=== PATIENT | male | born 1970 | race Caucasian/White ===

== ENCOUNTER → 2018-01-29 12:52 | Outpatient (CLI) | payer OTHER, SELFPAY ==
--- NOTE | 2018-01-29 12:54 | RAD_ITS ---
STUDY: X-RAY - LUMBAR SPINE REASON FOR EXAM: Male, 47 years old. Pain TECHNIQUE: 4 view(s) of the lumbar spine were obtained. COMPARISON: None FINDINGS: Mild S-shaped scoliotic curvature of the lumbar spine. Lower ribs, upper medial pelvis and sacrum unremarkable. Normal lordosis. Slight retrolisthesis of L3-L4. Mild to moderate narrowing of the disc at L3-L4. No other disc degenerative features. Otherwise normal vertebral body height and alignment and normal mineralization. In flexion and extension there is no significant change in the degree of spondylolisthesis at L3-L4. There is rocker in of the disc space, widening anteriorly in extension, narrowing anteriorly in flexion. The remaining levels exhibit no abnormal motion. RAD/L/S Spine Min 4 Views IMPRESSION: There is motion across the degenerative disc at L3-L4 with flexion and extension, associated with mild retrolisthesis. Electronically Signed: Tom Gutierres, at 13:31 EDT Tel , Service support ,
== END ==
PROVIDERS: Family Provider Family Medicine; PCP Family Medicine; Visit Provider Orthopaedic Surgery
DX: M43.16 Spondylolisthesis, lumbar region (principal); M48.061 Spinal stenosis, lumbar region without neurogenic claudication
CPT/HCPCS: 72110

== ENCOUNTER → 2020-01-02 11:28 | Outpatient (CLI) | payer OTHER, SELFPAY ==
[2017-02-21 14:01] VITALS: BMI 23.9
--- NOTE | 2020-01-02 11:30 | RAD_ITS ---
STUDY: X-RAY - RIGHT SHOULDER REASON FOR EXAM: Male, 49 years old. PAIN IN RIGHT SHOULDER FOR SEVERAL YRS. GETTING WORSE WITH LIMITED RANGE OF MOTION. NO KNOWN INJURY. TECHNIQUE: 5 view(s) of the shoulder. COMPARISON: None. FINDINGS: There is mild degenerative arthrosis of the glenohumeral articulation. There is degenerative arthrosis of the acromioclavicular joint without inferior osseous spur formation. Normal acromion. Normal humeral head and visualized proximal humerus. The soft tissue structures are unremarkable. Normal visualized pulmonary apex. RAD/Shoulder min 2 Views IMPRESSION: Degenerative arthrosis Electronically Signed: Ricardo Pham MD at 11:52 EDT , Service support ,
== END ==
PROVIDERS: PCP Family Medicine; Referring Provider Orthopaedic Surgery; Visit Provider Orthopaedic Surgery
DX: M19.011 Primary osteoarthritis, right shoulder (principal)
CPT/HCPCS: 73030

== ENCOUNTER 2020-05-10 19:57 | Emergency (ER) | payer OTHER, SELFPAY ==
[2020-01-02 11:49] VITALS: BMI 23.9
[2020-05-10 19:58] VITALS: BP 144/86; PULSE 87; RESP 16; TEMP 36.4; O2SAT 99; BMI 24.8
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
[2020-05-10] MEDS: Erythromycin Base 1 OPTH.TUBE 1 APPLIC LEFT EYE (21:08)
== END 2020-05-10 21:09 | disposition home or self-care (01) ==
LOC: ED 20:40
PROVIDERS: Emergency Provider Emergency Medicine
DX: T15.02XA Foreign body in cornea, left eye, initial encounter (principal); X58.XXXA Exposure to other specified factors, initial encounter; Y93.01 Activity, walking, marching and hiking; Y92.89 Other specified places as the place of occurrence of the external cause; Y99.0 Civilian activity done for income or pay; F17.200 Nicotine dependence, unspecified, uncomplicated
CPT/HCPCS: 65220; 99283

== ENCOUNTER 2020-08-11 21:21 | Emergency (ER) | payer OTHER, SELFPAY ==
[2020-08-11 21:22] VITALS: BP 149/111; PULSE 99; RESP 18; TEMP 36.7; O2SAT 96; BMI 24.3
[2020-08-11 21:51] VITALS: PULSE 78; RESP 16; O2SAT 98
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
[2020-08-11] MEDS: BACITRACIN 15 GM Tube 1 APPLIC TOPICAL (22:03)
== END 2020-08-11 22:23 | disposition home or self-care (01) ==
LOC: ED 22:10
PROVIDERS: Emergency Provider Emergency Medicine
DX: T23.101A Burn of first degree of right hand, unspecified site, initial encounter (principal); T20.10XA Burn of first degree of head, face, and neck, unspecified site, initial encounter; X08.8XXA Exposure to other specified smoke, fire and flames, initial encounter; Y93.9 Activity, unspecified; Y92.9 Unspecified place or not applicable; Y99.0 Civilian activity done for income or pay; Z72.0 Tobacco use
CPT/HCPCS: 99284

== ENCOUNTER 2020-10-13 17:30 | Outpatient (RCR) | payer OTHER, SELFPAY ==
--- NOTE | 2020-08-31 14:27 | HP.PTEVAL ---
Patient's Visit Information CR STEPHENSON is a 49 year old M referred to Physical Therapy by SHADI LEHMAN with a diagnosis of Cervical radiculopathy. Date of Evaluation: 08/30/20 Physical Therapist: Tera Johnson DPT - Visit Plan Frequency: 1-2x /Week Duration: 6 Weeks Plan: Start with manual traction with sligth flexion (may trial mechanical if tolerating well). Add in cervical retraction, chin tucks. Progress ligth extension as tolerated. If not improving trial US to reduce initial irritibility of symptoms. - Subjective Pt. is here today for his initial evaluation with diagnosis of cervicalgia with radiculopathy. Pt. reports having increased symptoms for a few months now. He has a history of neck pain and radiation of symptoms into his L hand. He previously had an injection which helped, but does have some residual thumb N/T since. Pt. is now experienceing pain constantly that increases with: looking up, L rotation, L side bend. Decreases symptoms: nothing. 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 He does not report any muscle weakness, but mostly N/T and pain in neck and L UE. He has tried ice, heat, OTC meds and stretching with no decrease in symptoms. Pt. is scheduled to have a nerve conduction test early next month. He is hopeful to reduce symptoms in order to improve his quality of life and get back to all work and recreational activities without limitations. - Pain Neck Pain Intensity (Out of 10): 8 Pain Intensity Range: 2, 8 LUE Pain Intensity (Out of 10): 4 Pain Intensity Range: 3, 8 - Objective POSTURE: Pt. has slight FH posture, increased symptoms with correction. HE tends to keep his L UE is sligth guarded posture. PALPATION: Pt. has tenderness at L side of C5 and C6. Hypomobility at C5-C7 with spring testing and increased pain noted at C5-C7, worst at C5. NEURO: Pt. has deminished biceps and triceps DTR bilaterally. Pt. has reduction in sensation ot L thumb, rest is normal. ROM: Pt. has normal B shoulder ROM and symmetrical, no increase in symptoms. CERVCIAL SPINE: flexion nil loss NE, extension- max loss increase NW (perpipherization of symptoms), rotation R min-nil loss NE, roation R min/mod loss increase NW, SB R nil loss NE, SB L min loss increase NW. MMT: pt. 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 - Goals Goal 1:: LTG: Pt. to be I with HEP. Goal Time Frame: 4-6 Weeks Goal 2:: LTG: Pt. to have full cervical ROM without increase in symptoms. Goal Time Frame: 4-6 Weeks Goal 3:: STG: Pt. to sleep with out his symptoms awaking him throughout the night. Goal Time Frame: 2-4 Weeks Goal 4:: LTG: Pt. to demonstrate proper posture throughout therapy session, indicating increased postural awareness. Goal Time Frame: 4-6 Weeks Goal 5:: LTG: Pt. to complete all work related activities without increase in symptoms. Goal Time Frame: 4-6 Weeks Goal 6:: LTG: Pt. to report decreased neuro symptoms in his L UE by 50%. Goal Time Frame: 4-6 Weeks - Rehabilitation Potential Physical Therapy Diagnosis: Pt. has signs and symptoms consistent with cervical radiculopathy with radiating symptoms down his L UE to his hand. His symptoms appear to follow the C6-C7 pattern. Pt did have some relief with intermittent traction this date. He would benefit from PT to decrease symptoms, improve his ROM and promote improved posture. Rehabilitation Potential: Good - Anticipated Interventions Patient/Client Instruction: Educate patient on: Condition, Plan of Care, Risk Factors, Benefits of Fitness Program For the Purpose of:: To improve decision making, To facilitate caregiver knowledge, To improve self management, To prevent re-injury, To improve ability to perform tasks related to life management, To improve tolerance to ADL's Therapeutic Exercise to Include: Strength training, Power training, Endurance training, Body mechanics, Postural training, Flexibilty training, Passive ROM, Active ROM, Karina Exercises For the Purpose of:: To decrease pain, To increase ROM, To improve nutrient delivery to tissue, To increase oxygenation perfusion, To improve muscle performance and motor function, To improve health of tissue, To decrease soft tissue restriction, To increase flexibility/ROM, To reduce risk of recurrence Manual Therapy Techniques to Include: Passive ROM, Functional dry needling, Soft tissue mobilization Comment: manual traction For the Purpose of:: To decrease swelling/inflammation, To improve nutrient delivery to tissue, To increase oxygenation perfusion, To improve muscle performance and motor function, To improve health of tissue, To decrease soft tissue restriction, To increase flexibility/ROM Ultrasound (thermal/non thermal): Yes For the Purpose of:: To decrease pain, To decrease swelling/inflammation, To increase ROM, To improve nutrient delivery to tissue Thank you for the opportunity to evaluate your patient. For Medicare and Medicare HMO plans, please review the plan of care and approve it. It will need to be FAXED BACK to us at [phone] for Medicare purposes. For Medicare only, by signing this I certify the plan of care. Please let me know if there are questions or concerns regarding this plan of care. Physician Signature: Date:
--- NOTE | 2020-10-27 13:57 | HP.PTDCSUM ---
It has been my pleasure to treat CR STEPHENSON referred by SHADI LEHMAN, with the diagnosis of Cervical radiculopathy for a total of 7 visit(s). Discharge Date: 10/13/20 Please see the following information for a summary of their discharge status. Subjective: Pt. is here today for his follow up. Pt. reports that his neck ROM has improved, but he is still having the N/T in his L UE almost constantly. He reports being ready to return to physician. Neck Pain Intensity (Out of 10): 0 LUE Pain Intensity (Out of 10): 0 % Improvement: 25 Objective/Function: Pt. has close to full ROM without effect of his symptoms, except into extension with is min loss with mild increase in symptoms. Pt. has normal strength throughout BUEs, cardiovascular sonographer strength is equal bilaterally. He does not present with myotomal weakness, but is still limited with cervical extension which results in increased tingling in his L UE along C6/C7 dermatome. Mild increase with L spurlings as well. Goal 1:: LTG: Pt. to be I with HEP. Goal Progress: Goal Met Goal 2:: LTG: Pt. to have full cervical ROM without increase in symptoms. Goal Progress: Progressing Goal 3:: STG: Pt. to sleep with out his symptoms awaking him throughout the night. Goal Progress: Goal Met Goal 4:: LTG: Pt. to demonstrate proper posture throughout therapy session, indicating increased postural awareness. Goal Progress: Goal Met Goal 5:: LTG: Pt. to complete all work related activities without increase in symptoms. Goal Progress: Progressing Goal 6:: LTG: Pt. to report decreased neuro symptoms in his L UE by 50%. Goal Progress: Not Progressing Plan: Pt. will be DC to HEP and back to physician at this point in time. Pt. made gains with cervical ROM, but not significant change in N/T inhis LUE. Discharge Comments: Pt. will be DC from PT at this point in time. He made some gains in cervical ROM, but no significant change in his N/T in his LUE, which is actually slightly worse at times. He will be DC to HEP and to follow up with physician to determine best course of action. If there are questions or concerns regarding this patient's physical therapy, please feel free to call me at [phone]. Thank you for the referral of this patient. Sincerely, LAMBERT FaithT
== END 2020-10-13 19:00 | disposition home or self-care (01) ==
LOC: PT 17:30
DX: M54.12 Radiculopathy, cervical region (principal)
CPT/HCPCS: 97012; 97110; 97140; 97161; 97164

== ENCOUNTER → 2021-12-02 | Outpatient (CLI) | payer OTHER, SELFPAY ==
--- NOTE | 2021-12-02 17:47 | MRI_ITS ---
EXAM: MR CERVICAL SPINE WITHOUT INTRAVENOUS CONTRAST CLINICAL INDICATION: Pain Technologist Notes Other, NECK PAIN. RT ARM FALLS ASLEEP. NO KNOWN INJURY. PAIN X 2 YEARS. TECHNIQUE: Multiplanar and multisequence MR images of the cervical spine without intravenous contrast were performed. This report was created using [employer] report generation technology. COMPARISON: MR CERVICAL 02/19/17 FINDINGS: VERTEBRAE: See below. SPINAL CORD: Unremarkable in signal and morphology. SOFT TISSUES: Unremarkable. No prevertebral soft tissue swelling. LYMPH NODES: Unremarkable. There is no cervical adenopathy. DISCS/SPINAL CANAL/NEURAL FORAMINA: C2-C3: Unremarkable. Normal disc height and morphology. Normal spinal canal. Normal neuroforamina. C3-C4: C3-4: Loss of intervertebral disc height. There is endplate spondylosis of the vertebral body. Normal central canal and intervertebral neuroforamina. There is bilateral facet arthropathy. C4-C5: C4-5: Loss of intervertebral disc height. There is endplate spondylosis of the vertebral body. Right paracentral disc bulge. This extends into the right intervertebral neuroforamina. Compression of exiting right nerve roots. There is bilateral facet arthropathy. Normal spinal canal. C5-C6: C5-6: Loss of intervertebral disc height. There is endplate spondylosis of the vertebral body. Left paracentral disc bulge. This extends into the left intervertebral neuroforamina. Compression of exiting left nerve roots. There is bilateral facet arthropathy. Mild narrowing the lateral recess. C6-C7: C6-7: Loss of intervertebral disc height. There is endplate spondylosis of the vertebral body. Left paracentral disc herniation with extrusion. This extends into the left intervertebral neuroforamina. Compression of exiting left nerve roots. There is bilateral facet arthropathy. Moderate narrowing the lateral recess. Moderate spinal stenosis. C7-T1: Unremarkable. Normal disc height and morphology. Normal spinal canal. Normal neuroforamina. MRI/Spine Cervical (Routine) IMPRESSION: 1. C4-5: Loss of intervertebral disc height. There is endplate spondylosis of the vertebral body. Right paracentral disc bulge. This extends into the right intervertebral neuroforamina. Compression of exiting right nerve roots. There is bilateral facet arthropathy. 2. C5-6: Loss of intervertebral disc height. There is endplate spondylosis of the vertebral body. Left paracentral disc bulge. This extends into the left intervertebral neuroforamina. Compression of exiting left nerve roots. There is bilateral facet arthropathy. Mild narrowing the lateral recess. 3. C6-7: Loss of intervertebral disc height. There is endplate spondylosis of the vertebral body. Left paracentral disc herniation with extrusion. This extends into the left intervertebral neuroforamina. Compression of exiting left nerve roots. There is bilateral facet arthropathy. Moderate narrowing the lateral recess. Moderate spinal stenosis. Electronically Signed: Sea Parker MD at 19:20 EDT ,
== END | disposition home or self-care (01) ==
PROVIDERS: Visit Provider Orthopaedic Surgery
DX: M50.221 Other cervical disc displacement at C4-C5 level (principal); M47.812 Spondylosis without myelopathy or radiculopathy, cervical region
CPT/HCPCS: 72141

== ENCOUNTER 2023-11-18 19:25 | Emergency (ER) | payer OTHER, SELFPAY ==
[2023-11-18 19:28] VITALS: BP 127/89; PULSE 98; RESP 18; TEMP 36.4; O2SAT 99; BMI 23.6
--- NOTE | 2023-11-18 20:15 | RAD_ITS ---
EXAM: XR CERVICAL SPINE, 2 OR 3 VIEWS CLINICAL INDICATION: pain/axial loading injury TECHNIQUE: Frontal and lateral views of the cervical spine. COMPARISON: No relevant prior studies available. FINDINGS: VERTEBRAE: C3-4: Loss of intervertebral disc height. There is endplate spondylosis of the vertebral body. Normal central canal and intervertebral neuroforamina. There is bilateral facet arthropathy. C4-5: Loss of intervertebral disc height. There is endplate spondylosis of the vertebral body. Normal central canal and intervertebral neuroforamina. There is bilateral facet arthropathy. C5-6: Loss of intervertebral disc height. There is endplate spondylosis of the vertebral body. Normal central canal and intervertebral neuroforamina. There is bilateral facet arthropathy. C6-7: Loss of intervertebral disc height. There is endplate spondylosis of the vertebral body. Normal central canal and intervertebral neuroforamina. There is bilateral facet arthropathy. C7-T1: Loss of intervertebral disc height. There is endplate spondylosis of the vertebral body. Normal central canal and intervertebral neuroforamina. There is bilateral facet arthropathy. Preservation of the normal cervical lordosis. DISC SPACES: Unremarkable. Disc spaces are maintained. SOFT TISSUES: Unremarkable. No prevertebral soft tissue widening. LUNG APICES: Clear. RAD/Cerv Spine 2 or 3 Views IMPRESSION: Degenerative findings in the cervical spine. Electronically Signed: Sea Parker MD at 20:50 EDT ,
--- NOTE | 2023-11-18 20:17 | EX.ED.GENINJ ---
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 He states now he is just dealing with neck pain whenever he moves it. He denies any new neurologic symptoms in his arms or legs. Denies any significant headache, loss of consciousness, changes in his vision. No confusion. [facility] Medical History (Updated 11/18/23 @ 20:[address] Avi Johnson MD) HNP (herniated nucleus pulposus), cervical Neural foraminal stenosis of cervical spine Home Medications meloxicam 15 mg tablet 7.5 mg PO BID 01/19/17 [History Last Taken 02/20/17 7.5 MG] gabapentin 100 mg capsule 100 mg PO BIDCM 02/07/17 [History Last Taken 02/20/17 100 MG] methocarbamol 750 mg tablet 750 mg PO BID 11/11/21 [History Last Taken Unknown] Allergy/AdvReac Type Severity Reaction Status Date / Time Iodinated Contrast Media Allergy Swelling Verified 11/18/23 19:27 [CONTRASTS] Surgical History H/O hernia repair Social History Smoking Status: Current every day smoker tobacco type: cigarettes ROS ROS ED Eyes Eyes: Denies blurry vision or change in vision Gastrointestinal Gastrointestinal: Denies nausea or vomiting Musculoskeletal Musculoskeletal: Reports neck pain; Denies back pain Neurologic Neurologic: Denies confusion, headache(s), paresthesias, seizures, syncope or weakness EXAM Physical Exam Const Vital Signs: 11/18/23 19:28 11/18/23 19:26 Temperature 97.6 F L Temperature Source Temporal Pulse Rate 98 Respiratory Rate 18 Respiratory Effort Normal Non-Labored Respiratory Pattern Normal Blood Pressure 127/89 H Blood Pressure Mean 101 Pulse Ox 99 Oxygen Delivery Method Room Air Positive well nourished and well developed General Appearance ED: well developed and NAD HEENT HEENT Narrative: Mild tenderness on top of the head with there is no evidence of trauma, crepitance, depression, or hematoma. No other signs of facial or head trauma. No Chavez sign. No CSF otorhinorrhea. No periorbital ecchymosis. Eyes PERRL and EOMs intact bilaterally Neck full ROM Neck Narrative: Tender at the midline base of the C-spine C6 or 7. No step-off. No signs of trauma here. No other spinal tenderness. Able to move but it hurts to do so. 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 He thinks he can go back to work. Takes meloxicam and already did so this morning so we mutually agreed to avoid analgesics here further than what he is already taken. He was offered an ice pack. Three-view x-ray series of the cervical spine negative for acute fracture on my interpretation. I suppose he probably had a sensory neuropraxia in the back of his neck that is resolved. He is not having any acute radiculopathy. Given appropriate discharge instructions regarding the neck strain, he is okay going back to work tonight, I offered lifting restrictions if he wants them. Radiography Diagnostic Testing: Clinical Impression(s) from Imaging Studies Cervical Spine X-Ray 11/18/23 20:15 IMPRESSION: Degenerative findings in the cervical spine. Electronically Signed: Sea Praker MD at 20:50 EDT , Discharge Plan Triage Chief Complaint: Other, Pain/Inj ED Provider: Avi Johnson Dx/Rx/DC Orders Clinical Impression: Acute cervical myofascial strain, Neurapraxia of head and neck region Instructions: ED Neck Sprain or Strain Prescriptions: No Action methocarbamol 750 mg tablet 750 mg PO BID gabapentin 100 MG capsule 100 mg PO BIDCM meloxicam 15 MG tablet 7.5 mg PO BID Patient Comments: PAIN Primary Care Provider: CYNTHIA MEZA Referrals: [facility] [Group of Physicians] - 3-5 Days Disposition Disposition: Home, Self Care
[2023-11-18 21:23] VITALS: BP 124/74; PULSE 71; RESP 18; TEMP 36.4; O2SAT 98
== END 2023-11-18 21:25 | disposition home or self-care (01) ==
PROVIDERS: Emergency Provider Emergency Medicine; Visit Provider Emergency Medicine
DX: S16.1XXA Strain of muscle, fascia and tendon at neck level, initial encounter (principal); F17.210 Nicotine dependence, cigarettes, uncomplicated; S14.9XXA Injury of unspecified nerves of neck, initial encounter; S04 Injury of cranial nerve; W22.03XA Walked into furniture, initial encounter; Y92.59 Other trade areas as the place of occurrence of the external cause
CPT/HCPCS: 72040; 99282